=== PATIENT | female | born 1950 | race American Indian/Alaskan Native ===

== ENCOUNTER 2021-08-02 06:27 | Day surgery (SDC) | payer MEDICARE ==
[2021-08-02] MEDS ORDERED: ASPIRIN EC 325 MG TAB PO NR (07:08)
[2021-08-02] MEDS ORDERED: SODIUM CHLORIDE 0.9% 500 ML 500 ML IV SCH (08:00)
[2021-08-02 08:20] LABS: Basophils % (Auto) 0.4 % (0.0-1.8); Eosinophils # (Auto) 0.1 K/mm3 (0.0-0.4); Eosinophils % (Auto) 1.8 % (0.0-4.3); Hematocrit 36.5 % (30.3-42.9); Hemoglobin 12.1 gm/dl (10.1-14.3); Lymphocytes # (Auto) 1.8 K/mm3 (1.2-5.4); Lymphocytes % (Auto) 29.7 % (13.4-35.0); Mean Corpuscular HGB Conc 33 % (30-34); Mean Corpuscular Volume 96 fl (79-97); Monocytes # (Auto) 0.4 K/mm3 (0.0-0.8); Monocytes % (Auto) 6.6 % (0.0-7.3); Platelet Count 196 K/mm3 (140-440); Red Blood Count 3.82 M/mm3 (3.65-5.03); Red Cell Distribution Width 13.3 % (13.2-15.2)
[2021-08-02 08:31] LABS: BUN/Creatinine Ratio 29; Blood Urea Nitrogen 20 mg/dL (7-17); Calcium 9.6 mg/dL (8.4-10.2); Hemolysis Index 17
[2021-08-02 08:31] LABS: INR 0.98 (0.87-1.13); Partial Thromboplastin Time 25.3 Sec. (24.2-36.6)
[2021-08-02] MEDS ORDERED: MIDAZOLAM 2 MG/2 ML INJ ONE (08:36)
[2021-08-02] MEDS ORDERED: HEPARIN 10,000 UNITS/10 ML VIAL ONE (08:36)
[2021-08-02] MEDS ORDERED: HEPARIN/NS 5000 UNIT/500ML 1,500 ML IR ONE (08:36)
[2021-08-02] MEDS ORDERED: VERAPAMIL 5 MG/2 ML INJ ONE (08:37)
[2021-08-02] MEDS ORDERED: LIDOCAINE (2%) 20 MG/1 ML VIAL 20 ML MDV INFILTRATI ONE (08:37)
[2021-08-02] MEDS ORDERED: fentaNYL 100 MCG/2 ML INJ ONE (08:37)
[2021-08-02] MEDS ORDERED: HEPARIN/NS 5000 UNIT/500ML 1,000 ML IR ONE (08:39)
[2021-08-02] MEDS ORDERED: NITROGLYCERIN SYRINGE 3 ML ONE (08:39)
--- NOTE | 2021-08-02 09:23 | Short Stay Summary ---
Short Stay Documentation Date of service: 08/02/21 - History H&P: obtained from office - Allergies and Medications Current Medications: Allergies No Known Allergies Allergy (Verified 03/19/16 10:17) Home Medications Medication Instructions Recorded Confirmed Last Taken Type Klor-Con 10 10 meq PO DAILY 03/19/16 08/02/21 08/02/21 05:30 History Latanoprost 0.005% 1 drop OU HS 03/19/16 08/02/21 08/01/21 20:00 History Losartan/Hydrochlorothiazide 1 each PO DAILY 03/19/16 08/02/21 08/02/21 05:30 History [Losartan-Hctz 50-12.5 mg Tab] Active Medications Sodium Chloride (Nacl 0.9% 500 Ml) 500 mls @ 50 mls/hr IV DIRECT ENMA Stop: 08/02/21 17:59 Last Admin: 08/02/21 08:27 Dose: 50 mls/hr - Brief post op/procedure progress note Date of procedure: 08/02/21 Pre-op diagnosis: Coronary artery disease Post-op diagnosis: same - Hospital course Hospital course: Uneventful post left heart cath - Disposition Condition at discharge: Good Disposition: 01 HOME / SELF CARE / HOMELESS Short Stay Discharge Plan Activity: no restrictions Diet: regular Wound: keep clean and dry Follow up with: ROLANDO HINOJOSA MD [Primary Care Provider] - 7 Days
[2021-08-02] MEDS ORDERED: HYDROcodone/ACETAMINOPHEN 5-325 MG TAB PO PRN (09:30)
[2021-08-02] MEDS ORDERED: traMADol 50 MG TAB PO PRN (09:30)
[2021-08-02] MEDS ORDERED: SODIUM CHLORIDE 0.45% 1000 ML 1,000 ML IV SCH (10:00)
--- NOTE | 2021-08-02 10:28 | Electrocardiograph Report ---
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
[2021-08-02 11:39] VITALS: BP 134/43
--- NOTE | 2021-08-08 10:48 | Cardiac Catherization Report ---
DATE OF PROCEDURE: 08/02/2021 CORONARY ANGIOGRAM REPORT PROCEDURES PERFORMED: 1. Selective left and right coronary angiogram. 2. Left ventriculogram. GUARD IMMIGRATION: Jose Pagan MD REFERRING PHYSICIAN: Dr. Álvarez. INDICATIONS: Chest pain with an abnormal CTA of the coronaries and abnormal stress test. PREOPERATIVE DIAGNOSIS: Coronary artery disease. POSTOPERATIVE DIAGNOSIS: Nonobstructive coronary artery disease. SEDATION DETAILS: Moderate sedation was given with continuous hemodynamic monitoring under my direct supervision. Versed and fentanyl were used primarily for sedation. Sedation start time 8:57 a.m. Sedation end time 9:10 a.m. Total sedation time 13 minutes. DESCRIPTION OF PROCEDURE: After obtaining written consent, the patient was draped using sterile technique. A 2% lidocaine was injected into the right wrist. A 5-Cypriot vascular sheath was inserted into the right radial artery. A 5-Cypriot JL3.5 catheter was used to selectively engage the left coronary artery. A 5-Cypriot JR4 catheter was used to selectively engage the right coronary artery. A 5-Cypriot JR4 catheter was used to perform a left ventriculogram. No complications occurred during the procedure. Hemostasis was achieved at the end of the procedure using manual pressure. SPECIMEN REMOVED: None. ESTIMATED BLOOD LOSS: Minimal. FINDINGS: 1. Hemodynamics: AO 146/65, LV is 146/23, LVEDP is 23. 2. Left ventriculogram done in 30-degree ALONZO projection shows normal LV systolic function, EF greater than 55%. ANGIOGRAM DETAILS: 1. Left main is angiographically normal. 2. LAD is a medium to large caliber vessel. Eccentric mid 30-40% stenosis noted. 3. The circumflex is a medium caliber vessel. Mid calcified 40% nonobstructive stenosis noted. 4. The RCA is large caliber dominant vessel. There is a 30-40% mildly calcified coronary artery disease noted. IMPRESSION: 1. Calcified nonobstructive mild to moderate triple vessel coronary artery disease involving the LAD, circumflex, and RCA. 2. Preserved left ventricular systolic function. 3. Elevated left ventricular end-diastolic pressure. PLAN: 1. Aggressive risk factor modification. 2. Medical management of coronary artery disease. 3. Routine groin care. TID: [id number] RECEIPT: [id number] ROBERT/TONIO/TOM
== END 2021-08-02 12:20 | disposition home or self-care (01) ==
LOC: CATHLABREC 06:27
PROVIDERS: ATTEND Internal Medicine Cardiovascular Disease
DX: R07.89 Other chest pain (principal); R94.39 Abnormal result of other cardiovascular function study; I25.10 Atherosclerotic heart disease of native coronary artery without angina pectoris; H40.9 Unspecified glaucoma; I10 Essential (primary) hypertension; E66.9 Obesity, unspecified; Z90.710 Acquired absence of both cervix and uterus; Z98.890 Other specified postprocedural states; Z80.3 Family history of malignant neoplasm of breast; Z79.899 Other long term (current) drug therapy; Z98.49 Cataract extraction status, unspecified eye; Z68.39 Body mass index [BMI] 39.0-39.9, adult; Z82.49 Family history of ischemic heart disease and other diseases of the circulatory system
CPT/HCPCS: 36415; 80048; 85025; 85610; 85730; 93005; 93010; 93458; 99156; C1894; J1644; J1815; J2250; J3010; J3490; J7040; Q9967